=== PATIENT | female | born 1985 | race Caucasian/White ===

== ENCOUNTER 2017-03-19 20:18 | Emergency (ER) | payer SELFPAY ==
[~2017-03-19] VITALS: Ht 157.5 cm; Wt 47.6 kg
[2017-03-19 22:15] VITALS: BP 112/76
[2017-03-19 22:16] VITALS: BP 112/76
--- NOTE | 2017-03-20 01:05 | Emergency Room Report ---
History of Present Illness General Chief Complaint: Generalized Weakness Source: Patient Present Illness HPI 32YOF walk-in with "Frozen face" and bilateral lower extremity "twitching." Patient with history of bipolar and anxiety/panic attacks Took hydroxizine prior to coming to ED Feels better now, asymptomatic Denies SI, HI, AVH Allergies: Coded Allergies: No Known Allergies (Unverified , 03/19/17) Patient History Past Medical History: psych hx Past Surgical History: none Pertinent Family History: none Social History: Denies: smoking, alcohol use, drug use Last Menstrual Period: last week Now: No Immunizations: UTD Reviewed Nursing Documentation: PMH: Agreed, PSxH: Agreed Review of Systems All Other Systems: negative except mentioned in HPI Physical Exam Vital Signs Date Time Temp Pulse Resp B/P (MAP) Pulse Ox O2 Delivery O2 Flow Rate FiO2 03/19/17 20:42 97.7 92 18 110/76 98 Sp02 EP Interpretation: reviewed, normal General Appearance: normal inspection, well appearing, no apparent distress, alert, GCS 15, non-toxic Head: normocephalic, atraumatic Eyes: bilateral eye PERRL, bilateral eye EOMI ENT: normal ENT inspection, hearing grossly normal, normal voice Neck: normal inspection, full range of motion, supple, no bony tend Respiratory: normal inspection, lungs clear, normal breath sounds, no respiratory distress, no retraction, no wheezing Cardiovascular #1: regular rate, rhythm, no edema Gastrointestinal: normal inspection, normal bowel sounds, non tender, soft, no guarding, no hernia Genitourinary: no CVA tenderness Musculoskeletal: normal inspection, back normal, normal range of motion, Karuna' s Sign negative Neurologic: normal inspection, alert, oriented x3, responsive, car builder III-XII nml as tested, motor strength/tone normal, speech normal Psychiatric: normal inspection, judgement/insight normal, mood/affect normal, no suicidal/homicidal ideation, no delusions, anxious Skin: normal inspection, normal color, no rash Medical Decision Making Diagnostic Impression: Primary Impression: Panic attack ER Course Anxious appearing Vitals stable No focal neuro deficits. Doubt CVA Resolved symptoms after hydroxizine Likely panic/anxiety attack Reassured patient DC home Last Vital Signs Date Time Temp Pulse Resp B/P (MAP) Pulse Ox O2 Delivery O2 Flow Rate FiO2 03/19/17 22:16 97.7 84 18 112/76 98 Status: improved Disposition: HOME, SELF-CARE Condition: Improved Referrals: NOT CHOSEN IPA/,REFERRING (PCP) Patient Instructions: Panic Cecilia, [id number] ALANA CANO M.D. Mar 20, 2017 01:05
== END 2017-03-19 22:45 | disposition home or self-care (01) ==
LOC: EMR 22:45
DX: F41.0 Panic disorder [episodic paroxysmal anxiety] (principal)
CPT/HCPCS: 99282

== ENCOUNTER 2018-03-25 14:48 | Emergency (ER) | payer BC ==
[~2018-03-25] VITALS: Ht 157.5 cm; Wt 45.4 kg
[2018-03-25] MEDS ORDERED: CLONIDINE HCL0.1 MG ORAL (15:04)
[2018-03-25] MEDS ORDERED: PRISTIQ50 MG PO (15:04)
[2018-03-25] MEDS ORDERED: GABAPENTIN600 MG ORAL (15:04)
--- NOTE | 2018-03-25 15:19 | Emergency Room Report ---
History of Present Illness General Chief Complaint: General Complaint Source: Patient Present Illness HPI Patient is a 33-year-old female who presented after increased involuntary muscle twitching. Patient had reportedly had prior history of similar symptoms in the past. Patient had been taking medications for anxiety with no recent change in medications. Patient reportedly took hydroxyzine prior to arrival. Patient noted have generalized agitation. She denies any fever. Allergies: Coded Allergies: No Known Allergies (Unverified , 03/19/17) Patient History Past Medical History: see triage record Last Menstrual Period: 3 weeks ago Reviewed Nursing Documentation: PMH: Agreed; PSxH: Agreed Nursing Documentation-PMH Past Medical History: No History, Except For Hx Cardiac Problems: No Hx Hypertension: No Hx Pacemaker: No Hx Asthma: No Hx COPD: No Hx Diabetes: No Hx Gastrointestinal Problems: No Hx Dialysis: No History Of Psychiatric Problem: Yes - depressin, anxiety Hx Neurological Problems: No Hx Cerebrovascular Accident: No Hx Seizures: No Review of Systems All Other Systems: negative except mentioned in HPI Physical Exam Vital Signs Date Time Temp Pulse Resp B/P (MAP) Pulse Ox O2 Delivery O2 Flow Rate FiO2 03/25/18 14:56 98.8 80 16 99 Room Air 98.8 General Appearance: well appearing, no apparent distress, alert, GCS 15, non- toxic Head: normocephalic, atraumatic ENT: hearing grossly normal, normal voice Neck: full range of motion, supple Respiratory: no respiratory distress, speaking full sentences Cardiovascular #1: normal inspection, normal peripheral pulses, regular rate, rhythm Gastrointestinal: normal inspection, non tender, soft, no mass Genitourinary: normal inspection Musculoskeletal: normal inspection, back normal, digits/nails normal, no calf tenderness Neurologic: normal inspection, alert, oriented x3, responsive, normal gait Psychiatric: mood/affect normal Skin: no rash Medical Decision Making Last Vital Signs Date Time Temp Pulse Resp B/P (MAP) Pulse Ox O2 Delivery O2 Flow Rate FiO2 03/25/18 14:56 98.8 80 16 99 Room Air 98.8 Berto Hameed MD Mar 25, 2018 15:19
[2018-03-25 15:51] VITALS: BP 121/84
[2018-03-25 16:03] LABS: ANION GAP 10 mmol/L (5-15); BLOOD UREA NITROGEN 22 mg/dL (7-18); CALCIUM 9.8 MG/DL (8.5-10.1); CARBON DIOXIDE 28 MMOL/L (21-32); CHLORIDE 103 MMOL/L (98-107); CREATININE 0.9 MG/DL (0.55-1.30); POTASSIUM 4.5 MMOL/L (3.5-5.1); SODIUM 141 MMOL/L (136-145)
[2018-03-25 16:07] LABS: ALANINE AMINOTRANSFERASE 20 U/L (12-78); ALBUMIN 4.4 G/DL (3.4-5.0); ALBUMIN/GLOBULIN RATIO 1.1 (1.0-2.7); ALKALINE PHOSPHATASE 70 U/L (46-116); ASPARTATE AMINO TRANSFERASE 16 U/L (15-37); BILIRUBIN,TOTAL 0.4 MG/DL (0.2-1.0)
[2018-03-25 16:11] LABS: BASOPHILS % (AUTO) 1.1 % (0.0-2.0); EOSINOPHILS % (AUTO) 0.4 % (0.0-3.0); HEMATOCRIT 44.8 % (37.0-47.0); LYMPHOCYTES % (AUTO) 35.6 % (20.0-45.0); MEAN CORPUSCULAR VOLUME 91 FL (80-99); MONOCYTES % (AUTO) 7.1 % (1.0-10.0); NEUTROPHILS % (AUTO) 55.9 % (45.0-75.0); PLATELET COUNT 210 K/UL (150-450); RED BLOOD COUNT 4.94 M/UL (4.20-5.40); RED CELL DISTRIBUTION WIDTH 11.1 % (11.6-14.8); WHITE BLOOD COUNT 7.4 K/UL (4.8-10.8)
[2018-03-25] MEDS ORDERED: Sodium Chloride 500ML 500 ML IV ONE ×2 (16:15→17:00)
[2018-03-25 17:46] VITALS: BP_SYST 121; BP_SYST 124; BP_DIAS 84; BP_DIAS 85
== END 2018-03-25 17:46 | disposition home or self-care (01) ==
LOC: EMR 15:29
DX: R25.3 Fasciculation (principal); F41.8 Other specified anxiety disorders; R45.1 Restlessness and agitation; T50.995A Adverse effect of other drugs, medicaments and biological substances, initial encounter; Y92.89 Other specified places as the place of occurrence of the external cause; Z87.891 Personal history of nicotine dependence
CPT/HCPCS: 36415; 80053; 83735; 85025; 96361; 96365; 96367; 99284; J7040